=== PATIENT | female | born 1990 | race Two or more races ===

== ENCOUNTER 2025-06-27 03:18 | Emergency (ER) | payer BC ==
[~2025-06-27] VITALS: Ht 157.5 cm; Wt 77.1 kg
[2025-06-27] MEDS ORDERED: TETANUS & DIPHTHERIA TOX,ADULT 0.5 ML VIAL IM STA (05:01)
[2025-06-27] MEDS ORDERED: TETANUS DIPHTHERIA TOX. ADSOR 5 ML VIAL IM ONE (05:04)
[2025-06-27] MEDS ORDERED: LIDOCAINE HCL 1% 10ML VIAL ONE (05:04)
== END 2025-06-27 06:40 | disposition home or self-care (01) ==
LOC: ER 03:18
DX: S01.01XA Laceration without foreign body of scalp, initial encounter (principal); W18.39XA Other fall on same level, initial encounter; Y93.89 Activity, other specified; Y92.59 Other trade areas as the place of occurrence of the external cause; Y99.9 Unspecified external cause status